=== PATIENT | female | born 1945 | race Caucasian/White ===

== ENCOUNTER 2016-10-21 16:34 | Emergency (ER) | payer OTHER ==
--- NOTE | 2016-10-21 16:47 | EDPHY ---
H & P HPI/ROS: HPI CHIEF COMPLAINT: Back pain HISTORY OF PRESENT ILLNESS: this patient very pleasant 71-year-old female significant past medical history for obesity, chronic kidney disease, hypertension, type 2 diabetes, thyroid disease history of sciatica, presents emergency room with low back pain. The pain is midline lumbar and radiates paravertebral bilaterally. She does feel some referred pain to the anterior right knee. She denies any leg weakness, denies buckling of the legs, denies saddle anesthesia, denies trauma or fever. The pain in her low back has been low lumbar region paravertebral since last week. No fever. Denies chest pain or shortness of breath. Denies any recent injury. States it does hurt worse when she moves with truncal axial movements. Or bending over. No focal weakness numbness or tingling. She denies flank pain, abdominal pain or urinary symptoms. Past Medical History: thyroid disease, chronic kidney disease, hypertension, type 2 diabetes, sleep apnea. Past Surgical History: No recent surgery Social History: denies daily use of drugs alcohol tobacco products. Family History: Noncontributory ROS REVIEW OF SYSTEMS: A comprehensive 10 point review of systems is otherwise negative aside from elements mentioned in the history of present illness. Exam Constitutional appears well nontoxic, triage nursing summary reviewed, vital signs reviewed, awake/alert. Eyes normal conjunctivae and sclera, EOMI, PERRLA. HENT normal inspection, atraumatic, moist mucus membranes, no epistaxis, neck supple/ no meningismus, no raccoon eyes. Respiratory clear to auscultation bilaterally, normal breath sounds, no respiratory distress, no wheezing. Cardiovascular rate normal, regular rhythm, no murmur, no edema, distal pulses normal. Gastrointestinal soft, non-tender, no rebound, no guarding, normal bowel sounds, no distension, no pulsatile mass. Genitourinary no CVA tenderness. Musculoskeletal no significant midline lumbar pain, she does have mild tenderness palpation paravertebral lumbar spine,, full range of motion, no calf swelling, no tenderness of extremities, no meningismus, good pulses, neurovascularly intact. Skin pink, warm, & dry, no rash, skin atraumatic. Neurologic awake, alert and oriented x 3, AAOx3, moves all 4 extremities equally, motor intact, sensory intact, CN II-XII intact, normal cerebellar, normal vision, normal speech. there is no leg weakness. No saddle anesthesia. Psychiatric normal mood/affect. Heme/Lymph/Immune no lymphadenopathy. Differential Diagnosis: Includes but is not limited to in a particular order acute low back pain, lumbar strain, nerve root compression, annular tear, compression fracture, sciatic Medical Decision Making: plan for this patient x-ray lumbar spine check urinalysis. Re-evaluation: 180: Patient resting comfortably here in emergency room in no acute distress. Urinalysis reviewed shows possible UTI this may be contributing to her back pain urine culture sent. Will start on Keflex. Additionally as I went over her x-ray of her back. Multilevel disc disease most likely cause of back pain. Recommend close follow-up with primary care doctor. Recommend taking Flexeril 10 mg once per day as well as Wells for acute pain. Continue Aleve. She understands stay well-hydrated take her meds with food. Not empty stomach. Source: Patient - Medical/Surgical History Hx Asthma: No Hx Chronic Respiratory Disease: No Hx Diabetes: Yes Hx Cardiac Disease: No Hx Renal Disease: No Hx Cirrhosis: No Hx Alcoholism: No Hx HIV/AIDS: No Hx Splenectomy or Spleen Trauma: No Other PMH: diabetes type II, HTN, sleep apnea, diverticulitis, spastic bladder, thyroidectomy, chronic kidney problems, GERD - Social History Smoking Status: Never smoked Constitutional: Initial Vital Signs Temperature (C) 37.1 C 10/21/16 17:15 Heart Rate 89 10/21/16 17:15 Respiratory Rate 16 10/21/16 17:15 Blood Pressure 170/101 H 10/21/16 17:15 O2 Sat (%) 92 10/21/16 17:15 O2 Delivery Mode Room Air Allergies/Adverse Reactions: ciprofloxacin Allergy (Intermediate, Verified 10/21/16 17:21) Rash ampicillin Allergy (Verified 10/21/16 17:21) BEE STINGS Allergy (Severe, Uncoded 10/21/16 17:21) Dyspnea PEANUTS Allergy (Severe, Uncoded 10/21/16 17:21) Dyspnea Home Medications: Medication Instructions Recorded Cholecalciferol Vit D3 [Vitamin D3 1,000 units PO DAILY 10/21/13 (OTC)] Esomeprazole Mag Trihydrate 40 mg PO DAILY 10/21/13 [Nexium] Hydrochlorothiazide [HCTZ (RX)] 25 mg PO DAILY 10/21/13 Lactobacillus Acidophilus 1 each PO BID 10/21/13 [Probiotic] Lisinopril 20 mg PO BID 10/21/13 Simvastatin [Zocor 20 mg (RX)] 20 mg PO DAILY18 10/21/13 EPINEPHrine [Epipen 0.3 MG (RX)] 0.3 mg IM ONCE PRN 10/24/13 Methocarbamol [Robaxin 750 mg (*)] 750 - 1,500 mg PO QID PRN #30 tab 02/07/14 ARMOUR THYROID 10/21/16 Cephalexin [Keflex] 500 mg PO Q6H #28 cap 10/21/16 Flexeril 10/21/16 Hydrocodone/APAP 5/325 [Wells 1 - 2 tab PO Q4H PRN #10 tab 10/21/16 5/325] Medical Decision Making - Diagnostics Imaging Results: Imaging Impressions Lumbar Spine X-Ray 10/21/16 17:02 Impression: Kyphoscoliosis described above with multilevel degenerative disk disease. If there is concern for instability, consider lateral flexion- extension views. - Data Points Laboratory Results: 10/21/16 17:40 Urine Color YELLOW Urine Appearance CLOUDY Urine pH 5.5 (5.0-7.5) Ur Specific [place] 1.020 (1.002-1.030) Urine Protein NEGATIVE (NEGATIVE) Urine Ketones NEGATIVE (NEGATIVE) Urine Blood NEGATIVE (NEGATIVE) Urine Nitrate NEGATIVE (NEGATIVE) Urine Bilirubin NEGATIVE (NEGATIVE) Urine Urobilinogen 0.2 EU EU (0.2-1.0) Ur Leukocyte Esterase TRACE H (NEGATIVE) Urine RBC OCCASIONAL /hpf /hpf (0-3) Urine WBC 1-3 /hpf /hpf (0-3) Ur Epithelial Cells 1+ /lpf /lpf (NONE-1+) Amorphous Sediment 2+ /hpf H /hpf (NONE-1+) Urine Bacteria 2+ /hpf H /hpf (NONE SEEN) Urine Mucus 3+ /lpf H /lpf (NONE-1+) Urine Glucose NEGATIVE (NEGATIVE) Departure - Departure Disposition: Home, Routine, Self-Care Clinical Impression: Lumbar back pain Qualifiers: Chronicity: acute Back pain laterality: unspecified Sciatica presence: with sciatica Sciatica laterality: sciatica of right side Qualified Code(s): M54.41 - Lumbago with sciatica, right side UTI (urinary tract infection) Qualifiers: Urinary tract infection type: acute cystitis Hematuria presence: without hematuria Qualified Code(s): N30.00 - Acute cystitis without hematuria Condition: Good Instructions: Lumbar Radiculopathy (ED), Acute Low Back Pain (ED), Low Back Strain (ED) Additional Instructions: 1. Stay well-hydrated drink lots of fluids. 2. Follow up with your primary care doctor. Referrals: MIGUELINA PINEDA [Primary Care Provider] - As per Instructions Prescriptions: Cephalexin [Keflex] 500 mg PO Q6H #28 cap Hydrocodone/APAP 5/325 [Wells 5/325] 1 - 2 tab PO Q4H PRN #10 tab PRN Reason: Pain, Moderate
[2016-10-21 17:18] VITALS: TEMP 98.8; O2SAT 92
[2016-10-21 17:48] LABS: COLOR YELLOW; NITRITE,URINE NEGATIVE (NEGATIVE); PH,URINE 5.5 (5.0-7.5)
[2016-10-21 17:49] LABS: LEUKOCYTE ESTERASE,URINE TRACE (NEGATIVE)
[2016-10-21 17:55] LABS: MUCUS 3+ /lpf (NONE-1+); RBC,URINE OCCASIONAL /hpf (0-3)
[2016-10-21 17:56] LABS: AMORPHOUS 2+ /hpf (NONE-1+); BACTERIA 2+ /hpf (NONE SEEN)
[2016-10-21] MEDS ORDERED: CEPHALEXIN 500 MG CAP PO ONE (18:08)
[2016-10-21] MEDS ORDERED: CEPHALEXIN 500MG PREPACK#4 BTL TAKEHOME ONE (18:08)
[2016-10-21 18:25] VITALS: BP 127/85; PULSE 70; RESP 18
== END 2016-10-21 18:25 | disposition home or self-care (01) ==
LOC: CED 16:34
DX: M54.41 Lumbago with sciatica, right side (principal); N30.00 Acute cystitis without hematuria; B96.89 Other specified bacterial agents as the cause of diseases classified elsewhere; I12.9 Hypertensive chronic kidney disease with stage 1 through stage 4 chronic kidney disease, or unspecified chronic kidney disease; N18.9 Chronic kidney disease, unspecified; E11.9 Type 2 diabetes mellitus without complications
CPT/HCPCS: 72100-PO; 81003-PO; 81015-PO